=== PATIENT | female | born 1970 | race Caucasian/White ===

== ENCOUNTER 2025-08-26 14:07 | Emergency (ER) | payer OTHER, SELFPAY ==
[2025-08-26 14:09] VITALS: BP 137/81
--- NOTE | 2025-08-26 16:10 | ED.MUSCINJ ---
HPI-Injury
General
Chief Complaint: Musculo-Skeletal Complaint
Source: patient
Exam Limitations: none
Time Seen by Provider: 08/26/25 15:43
History of Present Illness-Injury
Initial Injury comments:
55-year-old female presents complaining of left ankle pain starting today. She was knocked over by several dogs and twisted her ankle. She notes pain over the medial and lateral aspect of the ankle. She has been unable to bear weight. No other
complaints at this time
Phy Exam
Physical Exam
Physical Exam:
General: Well-appearing female no acute respiratory distress
Musculoskeletal exam: Left ankle swollen tender over the medial aspect and posterior lateral aspect of the ankle no significant deformity
Vascular: 2+ DP pulse left foot
Neurologic: Good sensation left foot
Injury Course
Orders/Labs/Results
Orders:
Orders
08/26/25 14:12
Ankle, left 3 view CR [CR Ankle - Left Min 3 Views ] Urgent
Comment:
Reason For Exam: fall
MDM/Problems Addressed
Differential Diagnosis Includes:
Left ankle pain after injury. Consider fracture versus dislocation or sprain
I personally reviewed x-rays and my interpretation is that there is a fractured posterior malleolus and questionable fracture of the lateral malleolus. Radiologist read it as bimalleolar ankle fracture. There is no dislocation. I placed the
patient in a posterior and U-splint using cast padding OCL and Ashwin bandages. She was neurovascular intact after the splint was applied. Patient has crutches. Strict nonweight bearing precautions were given. She was vies follow-up with
orthopedics for further evaluation. She is comfortable currently and is declining any prescription pain medications but will advise anti-inflammatories [id number]
*Pulse Oximetry
SaO2: 98
Oxygen Mode of Delivery: Room air
Patient hypoxic: no
*Critical Care Note
Total Time (30-74mins, 75-104mins- exclusive of procedures): Not Applicable
ED Attending Note
-
Portions of this chart may have been created with voice recognition software.� Occasional wrong word or��sound alike� substitutions may have occurred due to the inherent limitations of voice recognition software.
Discharge Plan
Departure
Patient Disposition: Home (Routine Discharge)
Date of Disposition: 08/26/25
Time of Disposition: 16:12
Patient with high blood pressure during this ER visit?: No
Discharge Problem:
Bimalleolar ankle fracture
Instructions: Muscle and Bone Pain (DC)
Referrals:
Kevin Denny MD [Active, Orthopedics]
Activity Restrictions/Additional Instructions:
Keep splint on and dry. Elevate for swelling. Do not bear any weight on the left leg. Use crutches when ambulating. Follow-up with orthopedics for next available appointment. You may use ibuprofen or Tylenol for pain
Interventions
Interventions:
*Risk Screen - Suicide Last Done: 08/26/25 14:09
*Neglect/Abuse Screening Last Done: 08/26/25 14:09
Discharge Date and Time
Print Language: ICELANDIC
[2025-08-26 16:42] VITALS: BP 128/78
== END 2025-08-26 17:02 | disposition home or self-care (01) ==
LOC: EMR 14:07
PROVIDERS: EMERGENCY PHYSICIAN Emergency Medicine
DX: S82.845A Nondisplaced bimalleolar fracture of left lower leg, initial encounter for closed fracture (principal); X50.1XXA Overexertion from prolonged static or awkward postures, initial encounter
CPT/HCPCS: 99283; 29515; 73610